=== PATIENT | male | born 1990 | race Caucasian/White ===

== ENCOUNTER 2018-11-18 10:30 | Outpatient (CLI) | payer OTHER, BC ==
[~2018-11-18] VITALS: Ht 182.9 cm; Wt 81.6 kg
[~2018-11-18 10:30] MED LIST: CETI10TA17 PO
== END 2018-11-18 11:04 | disposition home or self-care (01) ==
LOC: PREOP 10:30
PROVIDERS: ATTEND Surgery
DX: Z01.818 Encounter for other preprocedural examination (principal)

== ENCOUNTER → 2018-11-24 | Day surgery (SDC) | payer BC, OTHER ==
[2018-11-24] VITALS (10 sets, daily range): BP systolic 100–128; BP diastolic 45–127
[~2018-11-24] VITALS: Ht 182.9 cm; Wt 81.6 kg
[~2018-11-24] MED LIST changes: +ACETAMINOPHEN 325 MG TABLET PO PRN; +BUP/EPI 0.5% 1:200,000 (SENSORCAINE) 30 ML VIAL ONE; +CATHETER FLUSH 10 ML SYR IV PRN; +DEXAMETHASONE 10 MG/ML (DECADRON) 1 ML VIAL ONE; +GLYCOPYRROLATE 0.2 MG/ML (ROBINUL) 2 ML VIAL ONE; +HYDR-3816 PO; +HYDROcodone/APAP 5 MG/325 MG (LORTAB) TAB ONE; +HYDROcodone/APAP 5 MG/325 MG (LORTAB) TAB PO ONE; +KETOROLAC 30 MG/ML VIAL IVP ONE; +KETOROLAC 30 MG/ML VIAL ONE; +LIDOCAINE PF 2% 5 ML (XYLOCAINE) VIAL ONE; +MEPERIDINE (DEMEROL) INJ 50 MG/ML IVP ONE; +MIDAZOLAM 2 MG/2 ML (VERSED) VIAL ONE; +NEOSTIGMINE 3 MG/3 ML VIAL ONE; +ONDANSETRON 4 MG/2 ML (SDV) Z0FRAN IVP PRN; +ONDANSETRON 4 MG/2 ML (SDV) Z0FRAN ONE; +ROCURONIUM 10 MG/ML 5 ML SYRINGE IV ONE; +SEVOFLURANE (ULTANE) 15 ML INHAL SOLN ONE; +ceFAZolin 2 GM/50 ML NS 50 ML IV ONE; +fentaNYL INJECTION 100 MCG/2 ML AMP IVP ONE; +fentaNYL INJECTION 100 MCG/2 ML AMP ONE; +morphine INJ 10 MG/ML 1ML (SYR OR VIAL) IVP ONE; +morphine INJ 10 MG/ML 1ML (SYR OR VIAL) IVP PRN; +proPOfol 200 MG/20 ML (DIPRIVAN) VIAL IV ONE
[2018-11-24] MEDS: LACTATED RINGERS 1,000 ML IV PRN ×2 (07:25→09:40)
[2018-11-24 07:35] LABS: BASOPHILS % (AUTO) 0 % (0-10); EOSINOPHILS # (AUTO) 0.1 10^3/uL (0.0-0.3); EOSINOPHILS % (AUTO) 2 % (0-10); HEMATOCRIT 43 % (40-54); HEMOGLOBIN 15.3 G/DL (13.3-17.7); LYMPHOCYTES # (AUTO) 1.1 X 10^3 (1.0-4.0); LYMPHOCYTES % (AUTO) 21 % (12-44); MEAN CORPUSCULAR HEMOGLOBIN 31 PG (25-34); MEAN CORPUSCULAR HGB CONC 35 G/DL (32-36); MEAN CORPUSCULAR VOLUME 89 FL (80-99); MEAN PLATELET VOLUME 10.1 FL (7.4-10.4); MONOCYTES # (AUTO) 0.5 X 10^3 (0.0-1.0); MONOCYTES % (AUTO) 10 % (0-12); NEUTROPHILS # (AUTO) 3.6 X 10^3 (1.8-7.8); NEUTROPHILS % (AUTO) 67 % (42-75); PLATELET COUNT 138 10^3/uL (130-400); RED CELL DISTRIBUTION WIDTH 12.3 % (10.0-14.5); WHITE BLOOD COUNT 5.4 10^3/uL (4.3-11.0)
--- NOTE | 2018-11-24 08:12 | Progress Note-Pre Operative ---
Pre-Operative Progress Note H&P Reviewed The H&P was reviewed, patient examined and no changes noted. Date Seen by Provider: Nov 24, 2018 Time Seen by Provider: 08:10 Date H&P Reviewed: Nov 24, 2018 Time H&P Reviewed: 08:05 Pre-Operative Diagnosis: Symptomatic Biliary Dyskinesia ROYER XIONG APRN Nov 24, 2018 08:12
--- NOTE | 2018-11-24 08:17 | Discharge Inst-Surgical ---
D/C Lap Instructions-KIDO New, Converted, or Re-Newed RX: RX on Chart Follow Up Appt in 2 weeks Activity as tolerated No driving for 24 hours No driving while on pain medications Incentive Spirometry use every 2 hours while awake Regular Diet Symptoms to Report: Fever over 101 degree F, Nausea/Vomiting Infection Signs and Symptoms to report: Increased redness, Foul odor of wound, Increased drainage Bathing instructions: May shower Operative Area Clean/Dry; Keep incision clean/dry If any problems/questions: Contact your physician or go to Emergency Room ROYER XIONG APRN Nov 24, 2018 08:17
--- NOTE | 2018-11-24 10:03 | Progress Note-Post Operative ---
Post-Operative Progess Note Surgeon (s)/[employer] (s) Surgeon KARIE FLYNN MD [employer]: zoraida mendosa POLISHING MACHINE OPERATOR Pre-Operative Diagnosis Symptomatic Biliary Dyskinesia Post-Operative Diagnosis same Procedure & Operative Findings Date of Procedure 11/24/18 Procedure Performed/Findings laparoscopic cholecystectomy Anesthesia Type minimal Estimated Blood Loss Estimated blood loss (mL): minimal Specimens/Packing Specimens Removed gallbladder KARIE FLYNN MD Nov 24, 2018 10:03
--- NOTE | 2018-11-24 12:18 | Anesthesia-General Post-Op ---
General Patient Condition Mental Status/LOC: Same as Preop Cardiovascular: Satisfactory Nausea/Vomiting: Absent Respiratory: Satisfactory Pain: Controlled Complications: Absent Post Op Complications Complications None Follow Up Care/Instructions Patient Instructions None needed. Anesthesia/Patient Condition Patient Condition Patient is doing well, no complaints, stable vital signs, no apparent adverse anesthesia problems. No complications reported per nursing. CINTHIA SAHU CRNA Nov 24, 2018 12:18
--- NOTE | 2018-11-24 14:43 | OPERATIVE REPORT ---
DATE OF SERVICE: 11/24/2018 ATTENDING PHYSICIAN: Deana Vergara MD PREOPERATIVE DIAGNOSIS: Symptomatic biliary dyskinesia. POSTOPERATIVE DIAGNOSIS: Symptomatic biliary dyskinesia. PROCEDURE: Laparoscopic cholecystectomy. SURGEON: Karie Flynn MD PRENATAL GENETIC COUNSELOR: Олег Rodriguez APRN ANESTHESIA: General endotracheal. ESTIMATED BLOOD LOSS: Minimal. FINDINGS: Slightly distended gallbladder, no gallstones identified. DISPOSITION: The patient tolerated the procedure well. INDICATIONS: The patient is a 28-year-old male who was referred over to us for right upper abdominal quadrant pain and nausea and abdominal bloating after meals. He states that he had these symptoms even seven years ago and did go through a workup, which included an ultrasound as well as a HIDA scan and he did have an ejection fraction in the lower limits of normal. He also did have reproduction of symptoms during the test. He states that after proceeding with a dietary and lifestyle changes that this was tolerable; however, in the past several months it has become much more significant with nausea and abdominal bloating after the majority of meals. He states that this is especially worse after eating fats high in fat content. DESCRIPTION OF PROCEDURE: The patient was brought to the operating room and laid supine on the table. After adequate IV pain and sedative medications and general endotracheal intubation, the abdomen was prepped and draped in standard surgical fashion. A 0.5% Marcaine with epinephrine was used to anesthetize the overlying skin in the left upper abdominal quadrant and a transverse skin incision was made using a 15 blade. An 0 silk suture was applied to the medial aspect incision for retraction and a Veress needle inserted with a low opening pressure of 0 mmHg and the abdomen was then insufflated to 15 mmHg pressure. The Veress needle removed and a 5 mm Xcel trocar placed followed by a 5 mm 45 degree angle laparoscope visualizing the peritoneal cavity. A 4-quadrant abdominal exploration was performed. There is a slight distention of the gallbladder, no gallbladder wall inflammation. The liver, omentum, small bowel appeared normal. Under direct visualization, we then proceeded to place a supraumbilical 10 mm port after the skin and peritoneal lining were anesthetized using 0.5% Marcaine with epinephrine and a transverse skin incision made using a 15 blade. In a similar manner, a right upper abdominal quadrant 5 mm port was placed. The patient was then placed in reverse Trendelenburg position as well as plane right side up, left side down. The fundus of the gallbladder was then retracted anteriorly and superiorly. The hepatoduodenal ligament was then opened using cautery as well as blunt dissection using the hook instrument. The entire critical view of safety was identified including the cystic duct and artery as the only two structures going into the gallbladder as well as the cystic plate behind the proximal gallbladder. A timeout was then taken. The cystic duct and artery were then clipped proximally, distally and cut with EndoShears. The gallbladder was then dissected off the liver bed using electrocautery on the hook instrument with visualization of good hemostasis as well as no leaking ducts of Luschka. The gallbladder was removed through the 10 mm port site using an EndoCatch bag. The 10 mm port site fascia and peritoneum were then closed under direct visualization using Sherwin-Yair device and 0 Vicryl suture. The abdomen was desufflated and remaining ports removed. All skin incisions were closed using 4-0 Monocryl running subcuticular sutures. Wounds were then cleaned and covered with Dermabond. The patient tolerated the procedure well. We will start IV and oral pain medication as well as a clear liquid diet. Once he is tolerating clears, has good pain control with oral pain medication and is ambulating well, we will discharge him home. He will be instructed to do no heavy lifting or exertion for the next two weeks. Job ID: [id number] DocumentID: [id number] Dictated Date: 11/24/2018 09:58:10 Natural Resources Faculty Member Date: 11/24/2018 14:42:19 Dictated By: KARIE FLYNN MD
== END | disposition home or self-care (01) ==
LOC: SDC 06:54
PROVIDERS: ATTEND Surgery
DX: K81.1 Chronic cholecystitis (principal); K82.8 Other specified diseases of gallbladder; Z11.2 Encounter for screening for other bacterial diseases; K21.9 Gastro-esophageal reflux disease without esophagitis; F41.9 Anxiety disorder, unspecified; Z80.0 Family history of malignant neoplasm of digestive organs; Z79.899 Other long term (current) drug therapy; Z87.01 Personal history of pneumonia (recurrent)
CPT/HCPCS: 36415; 85025; 87081